=== PATIENT | female | born 1945 | race Caucasian/White ===

== ENCOUNTER → 2016-08-26 | Outpatient (CLI) | payer OTHER, MEDICARE ==
--- NOTE | 2016-08-26 11:50 | MA ---
Screening Digital Mammogram With Tomosynthesis Clinical Indications: Routine screening. Grandmother with breast cancer at age 61. Technique: Standard digital cephalocaudal and tomosynthesis mediolateral oblique projections are obt ained. An additional oblique lateral digital view is performed of the left breast. The digital images are processed by the [email or web address] computer aided detection system. Comparison: June 2015, June 2014, May 2013 and March 2012 Breast density: C; The breast tissue is heterogeneously dense, which could obscure detection of small masses. Findings: CAD was reviewed. No suspicious findings are identified. Impression: Negative mammogram. BI-RADS 1. Recommendation: Routine screening is recommended in one year, as long as physical examination is jefe ign in this patient with moderately dense breast parenchyma. [facility] will send a result letter to the patient. Negative mammography should not preclude additional workup of a clinically suspicious finding. The patient's information is entered into a reminder system with a target due date for her next mammo gram.
== END ==
LOC: FIMAGING 09:52
DX: Z12.31 Encounter for screening mammogram for malignant neoplasm of breast (principal)
CPT/HCPCS: G0202

== ENCOUNTER → 2017-06-10 | Outpatient (CLI) | payer OTHER, MEDICARE | LOC: FCPNEURO 00:49 | PROVIDERS: ATTEND Psychiatry & Neurology Sleep Medicine | DX: G47.39 Other sleep apnea (principal) ==

== ENCOUNTER → 2017-07-12 | Outpatient (CLI) | payer OTHER, MEDICARE | LOC: FCPNEURO 23:45 | PROVIDERS: ATTEND Psychiatry & Neurology Sleep Medicine | DX: G47.31 Primary central sleep apnea (principal); G47.33 Obstructive sleep apnea (adult) (pediatric) ==

== ENCOUNTER → 2017-08-27 | Outpatient (CLI) | payer OTHER, MEDICARE | LOC: FIMAGING 10:32 | PROVIDERS: ATTEND Internal Medicine | DX: Z13.820 Encounter for screening for osteoporosis (principal); M85.88 Other specified disorders of bone density and structure, other site ==

== ENCOUNTER → 2018-06-29 | Outpatient (CLI) | payer OTHER, MEDICARE | LOC: BHFA 09:15 | PROVIDERS: ATTEND Internal Medicine Cardiovascular Disease | DX: I35.1 Nonrheumatic aortic (valve) insufficiency (principal); I34.0 Nonrheumatic mitral (valve) insufficiency ==

== ENCOUNTER → 2018-09-05 | Outpatient (CLI) | payer OTHER, MEDICARE | LOC: FIMAGING 09:37 | PROVIDERS: ATTEND Internal Medicine | DX: Z12.31 Encounter for screening mammogram for malignant neoplasm of breast (principal) ==